=== PATIENT | female | born 1935 | race Caucasian/White ===

== ENCOUNTER 2019-01-17 11:09 | Day surgery (SDC) | payer MEDICARE, OTHER ==
[~2019-01-17] VITALS: Ht 165.1 cm; Wt 79.5 kg
[2019-01-17 12:26] VITALS: BP 154/73
[2019-01-17] MEDS ORDERED: SODIUM CHLORIDE 0.9% 1,000 ML IV SCH ×2 (12:38→15:12)
[2019-01-17] MEDS ORDERED: CITA20TA6 PO (13:06)
[2019-01-17] MEDS ORDERED: ATEN25TA PO (13:06)
[2019-01-17] MEDS ORDERED: CLOP75TA52 PO (13:07)
[2019-01-17] MEDS ORDERED: ROSU40TA PO (13:07)
[2019-01-17] MEDS ORDERED: HYDR25TA6 PO (13:08)
[2019-01-17] MEDS ORDERED: ESOM40CA PO (13:09)
[2019-01-17] MEDS ORDERED: POTA8CAP PO (13:10)
[2019-01-17] MEDS ORDERED: FLUT1AER INH (13:13)
[2019-01-17] MEDS ORDERED: FLUT9.9S NAS (13:15)
[2019-01-17] MEDS ORDERED: ALBU8.5H8 INH (13:17)
[2019-01-17] MEDS ORDERED: CALC-192 PO (13:18)
[2019-01-17] MEDS ORDERED: MAGN100T6 PO (13:18)
[2019-01-17] MEDS ORDERED: VIT1CAPS42 PO (13:19)
[2019-01-17] MEDS ORDERED: FENTANYL PF 100 MCG/2ML ONE (13:24)
[2019-01-17] MEDS ORDERED: VERAPAMIL 2.5 MG/ML, 2ML ONE (13:25)
[2019-01-17] MEDS ORDERED: LIDOCAINE 2%, 20ML ONE (13:25)
[2019-01-17] MEDS ORDERED: HEPARIN 1,000 UNITS/ML, 10ML ONE (13:25)
[2019-01-17] MEDS ORDERED: BIVALIRUDIN 250 MG ONE (13:25)
[2019-01-17] MEDS ORDERED: TICAGRELOR 90 MG TABLET ONE (13:25)
[2019-01-17] MEDS ORDERED: MIDAZOLAM 1 MG/ML, 5ML ONE (13:25)
[2019-01-17] MEDS ORDERED: ACETAMINOPHEN 325 MG TABLET ONE (13:49)
[2019-01-17] MEDS ORDERED: CLOPIDOGREL 75 MG TABLET ONE (14:25)
== END 2019-01-17 16:51 | disposition home or self-care (01) ==
LOC: CACL 11:09
PROVIDERS: ATTEND Internal Medicine Cardiovascular Disease
DX: I25.10 Atherosclerotic heart disease of native coronary artery without angina pectoris (principal); J43.9 Emphysema, unspecified; I10 Essential (primary) hypertension; F41.9 Anxiety disorder, unspecified; K21.9 Gastro-esophageal reflux disease without esophagitis; E78.5 Hyperlipidemia, unspecified; Z85.118 Personal history of other malignant neoplasm of bronchus and lung; Z88.8 Allergy status to other drugs, medicaments and biological substances; Z88.1 Allergy status to other antibiotic agents; Z91.040 Latex allergy status
CPT/HCPCS: 93458; 93571; 99156; 99157; C1769; C1894; J1644; J2250; J3010; Q9967; J0583